=== PATIENT | female | born 1960 | race Caucasian/White ===

== ENCOUNTER → 2016-06-04 | Outpatient (CLI) | payer OTHER ==
[~2016-06-04] MED LIST: ASPI1TAB69 PO; ASPI81TA82 PO; ATOR40TA49 PO; CENTTAB16 PO; CETI5TAB2 PO; LIPI40TA PO; LISI40TA PO; METO50TA PO; METO50TA11 PO; MULT-6 PO; PRED20 PO; PREM0.3T2 PO; PREM0.452 PO; PRIN20TA2 PO; TRIA.1%T TOP; VESI10TA4 PO; ZYRT10CA PO
[2016-06-04 11:43] LABS: HEMATOCRIT 42.4 % (35.0-46.0); MEAN CELL VOLUME 89.1 FL (80.0-100.0); MEAN CORPUSCULAR HEMOGLOBIN 29.1 PG (27.0-34.0); MEAN CORPUSCULAR HGB CONC 32.7 % (32.0-36.0); PLATELET COUNT 371 TH/MM3 (150-450); RED BLOOD COUNT 4.76 MIL/MM3 (4.00-5.30); RED CELL DISTRIBUTION WIDTH 12.1 % (11.6-17.2); REVIEW FLAG FINAL; WHITE BLOOD COUNT 5.9 TH/MM3 (4.0-11.0)
[2016-06-04 12:55] LABS: BLOOD, URINE MOD (NEG); GLUCOSE,URINE NEG (NEG); KETONE, URINE NEG (NEG); MUCUS URINE FEW /lpf (OCC); NITRITE,URINE NEG (NEG); PH, URINE 5.5 (5.0-8.5); SQUAMOUS EPITHELIAL CELL URINE 1 /hpf (0-5); URINE COLOR YELLOW (YELLW/STRAW)
[2016-06-04 12:56] LABS: COMMENT (UR) CULT NOT INDICATED; CULTURE IF INDICATED CULT NOT INDICATED
[2016-06-04 13:11] LABS: BICARBONATE 30.6 MEQ/L (21.0-32.0); POTASSIUM 4.2 MEQ/L (3.5-5.1)
== END ==
LOC: OLAB 11:10
PROVIDERS: ATTEND Internal Medicine Nephrology
DX: I10 Essential (primary) hypertension (principal); R31.29 Other microscopic hematuria
CPT/HCPCS: 80069; 81001; 82570; 84156; 85027

== ENCOUNTER → 2016-07-01 | Outpatient (CLI) | payer OTHER ==
[2016-07-01 13:04] LABS: BICARBONATE 30.6 MEQ/L (21.0-32.0); POTASSIUM 4.5 MEQ/L (3.5-5.1)
[2016-07-01 13:09] LABS: BACTERIA, URINE RARE /hpf; BLOOD, URINE MOD (NEG); GLUCOSE,URINE NEG (NEG); KETONE, URINE NEG (NEG); MUCUS URINE FEW /lpf (OCC); NITRITE,URINE NEG (NEG); PH, URINE 6.5 (5.0-8.5); SQUAMOUS EPITHELIAL CELL URINE 2 /hpf (0-5); URINE COLOR YELLOW (YELLW/STRAW)
[2016-07-03 15:52] LABS: MYELOPEROXIDASE LESS THAN 1.0 AI (<1.0); PROTEINASE-3 LESS THAN 1.0 AI (<1.0)
== END ==
LOC: OLAB 10:31
PROVIDERS: ATTEND Internal Medicine Nephrology
DX: N17.9 Acute kidney failure, unspecified (principal); R31.29 Other microscopic hematuria
CPT/HCPCS: 80069; 81001; 82570; 84156; 86021; 86160; 86162; 87086

== ENCOUNTER → 2016-08-03 | Outpatient (CLI) | payer OTHER ==
[2016-08-03 10:43] LABS: HEMATOCRIT 41.1 % (35.0-46.0); MEAN CELL VOLUME 88.9 FL (80.0-100.0); MEAN CORPUSCULAR HEMOGLOBIN 30.4 PG (27.0-34.0); MEAN CORPUSCULAR HGB CONC 34.2 % (32.0-36.0); PLATELET COUNT 405 TH/MM3 (150-450); RED BLOOD COUNT 4.62 MIL/MM3 (4.00-5.30); RED CELL DISTRIBUTION WIDTH 12.4 % (11.6-17.2); REVIEW FLAG FINAL; WHITE BLOOD COUNT 5.7 TH/MM3 (4.0-11.0)
[2016-08-03 13:41] LABS: APTT (PATIENT) 29.7 SEC (24.3-30.1); INTERNATIONAL NORMALIZED RATIO 0.9 RATIO; PROTHROMBIN TIME - PATIENT 9.8 SEC (9.8-11.6)
[2016-08-03 13:48] LABS: BICARBONATE 27.2 MEQ/L (21.0-32.0)
[2016-08-03 13:52] LABS: BACTERIA, URINE RARE /hpf; BLOOD, URINE MOD (NEG); GLUCOSE,URINE NEG (NEG); KETONE, URINE NEG (NEG); MUCUS URINE FEW /lpf (OCC); NITRITE,URINE NEG (NEG); SQUAMOUS EPITHELIAL CELL URINE <1 /hpf (0-5); URINE COLOR YELLOW (YELLW/STRAW)
[2016-08-03 13:53] LABS: COMMENT (UR) CULT NOT INDICATED; CULTURE IF INDICATED CULT NOT INDICATED
== END ==
LOC: OLAB 10:16
PROVIDERS: ATTEND Internal Medicine Nephrology
DX: I10 Essential (primary) hypertension (principal); N17.9 Acute kidney failure, unspecified
CPT/HCPCS: 80069; 81001; 82570; 84156; 85027; 85610; 85730

== ENCOUNTER 2016-08-10 06:57 | Day surgery (SDC) | payer OTHER ==
[~2016-08-10] VITALS: Ht 153.7 cm; Wt 70.0 kg
[2016-08-10] VITALS (8 sets, daily range): BP systolic 105–171; BP diastolic 64–93; PULSE 65–82; RESP 20; TEMP 97.3–97.4; O2SAT 93–97
[~2016-08-10 06:57] MED LIST changes: -ASPI1TAB69 PO; -LIPI40TA PO; -METO50TA11 PO; -MULT-6 PO; -PREM0.452 PO; -PRIN20TA2 PO; -ZYRT10CA PO
[2016-08-10] MEDS ORDERED: PRIN20TA2 PO (07:30)
[2016-08-10] MEDS ORDERED: METO50TA11 PO (07:30)
[2016-08-10] MEDS ORDERED: MULT-6 PO (07:30)
[2016-08-10] MEDS ORDERED: PREM0.452 PO (07:30)
[2016-08-10] MEDS ORDERED: ZYRT10CA PO (07:30)
[2016-08-10] MEDS ORDERED: ASPI1TAB69 PO (07:30)
[2016-08-10] MEDS ORDERED: LIPI40TA PO (07:30)
[2016-08-10] MEDS ORDERED: LIDOCAINE 1%/EPINEPHrine 1:100,000 SOLN 20 ML VIAL ONE (07:50)
[2016-08-10] MEDS ORDERED: MIDAZOLAM HCL 2 MG/2 ML VIAL ONE ×2 (08:42→09:03)
[2016-08-10] MEDS ORDERED: SODIUM CHLOR 0.9% 1000 ML IV SCH (08:45)
--- NOTE | 2016-08-10 10:05 | RADRPT ---
EXAM DATE/TIME: 08/10/2016 08:45 [place] COMPARISON: CT ABDOMEN & PELVIS W/O CONTRAST, June 12, 2012, 6:56. INDICATIONS : Acute renal failure SEDATION TIME: 30 minutes BIOPSY SITE: Left kidney MEDICATION(S): 1.) 4 mg midazolam (Versed) IV 2.) 100 mcg fentanyl (Sublimaze) IV DEVICE(S): 1.) 16 gauge Byrnes blunt needle 2.) 18 gauge BioPince MEDICAL HISTORY : Hypertension. SURGICAL HISTORY : None. ENCOUNTER: Initial ACUITY: 1 day PAIN SCORE: 0/10 LOCATION: Left flank A total of three core specimen(s) were obtained and sent to the laboratory for pathologic evaluation. PROCEDURE: 1. CT guided renal biopsy. 2. Conscious sedation with continuous EKG and oximetry monitoring. 3. EKG and oximetry remained stable throughout the procedure. Prior to the procedure informed consent was obtained. Any appropriate prior imaging studies were rev iewed. Using automated exposure control and adjustment of the mA and/or kV according to patient size, radiat ion dose was kept as low as reasonably achievable to obtain optimal diagnostic quality images. The left back was prepped in a sterile fashion. Full sterile technique was used, including cap, mask , sterile gloves and gown and a large sterile sheet. Hand hygiene and 2% chlorhexidine and/or betadi ne/alcohol prep was utilized per protocol for cutaneous antisepsis. The skin and subcutaneous tissue s were infiltrated with local anesthetic solution. With CT guidance the left lower pole kidney was localized. Biopsy was performed using the prescribed needle as above. Adequate hemostasis was obtained with compression at the puncture site. Visualizati on of the samples suggests multiple glomeruli indicating inadequate sample. Follow-up CT scan reveals minimal amount of perinephric hemorrhage and minimal perirenal air. No conc erning complication is present. The patient tolerated the procedure well and there were no complications. The patient was returned to the Radiology Outpatient Unit in stable condition. CONCLUSION: Uncomplicated CT guided biopsy of the left lower pole kidney. Bridger Canales MD on August 10, 2016 at 10:01 Board Certified Radiologist. This report was verified electronically.
== END 2016-08-10 13:43 | disposition home or self-care (01) ==
LOC: HRAD 06:57 → HRIP 07:03 → HRAD 13:43
PROVIDERS: ATTEND Internal Medicine Nephrology
DX: N17.9 Acute kidney failure, unspecified (principal); I10 Essential (primary) hypertension
CPT/HCPCS: 50200; 77012; J2250; J3010; J7030; 88305; 88313; 88346; 88348; 88350

== ENCOUNTER → 2016-10-23 | Day surgery (SDC) | payer OTHER ==
[~2016-10-23] MED LIST changes: +ASPI1TAB69 PO; -ASPI81TA82 PO; -ATOR40TA49 PO; -CENTTAB16 PO; -CETI5TAB2 PO; +GENTAMICIN SULFATE 80 MG/2 ML VIAL ONE; +KETOROLAC TROMETHAMINE 30 MG/ML (IVP) VIAL IV PUSH ONE; +LACTATED RINGER'S 1000 ML INJ 1,000 ML ONE; +LIDOCAINE HCL 2% JELLY 5 ML SYRINGE ONE; +LIPI40TA PO; -LISI40TA PO; -METO50TA PO; +METO50TA11 PO; +MIDAZOLAM HCL 2 MG/2 ML VIAL ONE; +MULT-6 PO; +ONDANSETRON HCL 4 MG/2 ML VIAL IV PUSH ONE; -PRED20 PO; -PREM0.3T2 PO; +PREM0.452 PO; +PRIN20TA2 PO; +PROPOFOL 200 MG/20 ML AMP IV ONE; -TRIA.1%T TOP; -VESI10TA4 PO; +ZYRT10CA PO
--- NOTE | 2016-10-23 15:50 | TN ---
cc: BEN TAY M.D. DATE OF SURGERY 10/23/16 PREOPERATIVE DIAGNOSIS Eosinophilic cystitis. POSTOPERATIVE DIAGNOSIS Eosinophilic cystitis. PROCEDURE PERFORMED Cystourethroscopy with bladder biopsy and fulguration of bladder lesions. FINDINGS Findings are normal urethra. The ureteral orifice normal size, shape and position, effluxing clear urine bilaterally. Just adjacent to the left ureteral orifice there is a fleshy sessile lesion with some whitish flecks of tissue imbedded within it. Does not look like any classic neoplastic process, but is somewhat abnormal in appearance and the right lateral wall site of a previous biopsy there is a biopsy scar that seems to be healing and some velvety erythematous lesions adjacent to it and some telangiectasia. On the left lateral wall is some additional telangiectasia with a small vascular mucosal lesion. No additional lesions identified. Two additional previous sites that were seen are no longer visualized today. The remainder of the bladder showed no arti tumors, calcifications or other abnormalities. There is no diverticuli ,trabeculations or cellules. PROCEDURE IN DETAIL The procedure as well as the risks and benefits were explained to the patient. Informed consent was obtained. The patient was taken to the major operative theater where she was placed in supine position. The patient was identified as well as the operative site. A universal time-out was performed in standard fashion. At this time general anesthetic and prophylactic intravenous antibiotics were administered. After adequate anesthetic she was placed in low dorsolithotomy position, prepped and draped in the usual sterile fashion. At this time a 22.5 Romanian obturator sheath were placed into the bladder. The obturator removed and a 30 degree lens cystoscope was placed. The 30 degree lens was exchanged for the 70 degree lens. The entire bladder was systematically surveyed with the above findings. At this time rigid biopsy forceps was used to biopsy aforementioned site in the left lateral wall as well as the adjacent to the left ureteral orifice. These were sent separately for final pathological evaluation. Bugbee probe was used to judiciously fulgurate the biopsy site in the ureteral orifice. Care was taken not to biopsy on the orifice itself and then the biopsy site in the left lateral wall was biopsied. Then, attention was directed to the right lateral wall lesion and that was fulgurated completely. After confirming hemostasis, no additional lesions, the bladder was decompressed, the scope removed. The patient was given a Urojet lidocaine and emerged from anesthetic without difficulty and transferred to the recovery room in stable condition to be discharged home when criteria is met. There are no obvious complications. MD MARIA LUZ Fisher/TIMOTHY /3:22 PM /3:37 PM
== END | disposition home or self-care (01) ==
LOC: ESDC 12:09
PROVIDERS: ATTEND Urology
DX: N30.80 Other cystitis without hematuria (principal)
CPT/HCPCS: 00910; 52224; 88305; J1580; J1885; J2250; J2405; J3010; J7120